=== PATIENT | male | born 1970 | race Caucasian/White ===

== ENCOUNTER 2018-11-04 14:59 | Emergency (ER) | payer SELFPAY ==
[~2018-11-04] VITALS: Ht 180.3 cm; Wt 81.8 kg
[2018-11-04 15:00] VITALS: BP 138/83
== END 2018-11-04 17:57 | disposition left against medical advice (07) ==
LOC: M ED 14:59
DX: H92.01 Otalgia, right ear (principal); Z53.21 Procedure and treatment not carried out due to patient leaving prior to being seen by health care provider

== ENCOUNTER 2019-03-03 13:34 | Emergency (ER) | payer OTHER, SELFPAY ==
[~2019-03-03] VITALS: Ht 180.3 cm; Wt 81.8 kg
--- NOTE | 2019-03-03 14:48 | REP ---
CT brain: 03/03/2019. Indication: Head trauma. Comparison: None. Technique: Unenhanced axial CT images of the brain were obtained from skull base to vertex. Findings: There is no acute intracranial hemorrhage, acute cortical infarction, mass effect, hydrocephalus or acute calvarial fracture. Mild periosteal mucosal thickening is noted within the visualized ethmoid and sphenoid sinuses. Impression: No acute intracranial process. Electronically Signed by John Villareal DO 03/03/2019 02:39 P
--- NOTE | 2019-03-03 14:54 | REP ---
CT cervical spine: 03/03/2019. Indication: Cervical spine trauma. Comparison: None. Technique: Unenhanced axial images of the cervical spine were obtained with coronal sagittal reconstructions provided. Findings: There is no acute fracture, subluxation or dislocation. There is no acute hemorrhage or additional acute post traumatic sequelae within the spinal canal detected. There is straightening of the cervical spine which is likely positional. The visualized lung is clear. Impression: No acute osseous injury of the cervical spine. Electronically Signed by John Villareal DO 03/03/2019 02:45 P
[2019-03-03 15:25] VITALS: BP 158/92
== END 2019-03-03 15:27 | disposition home or self-care (01) ==
LOC: M ED 13:34
DX: S06.0X9A Concussion with loss of consciousness of unspecified duration, initial encounter (principal); W00.9XXA Unspecified fall due to ice and snow, initial encounter; Y92.89 Other specified places as the place of occurrence of the external cause; Y93.9 Activity, unspecified; Y99.0 Civilian activity done for income or pay; I10 Essential (primary) hypertension